=== PATIENT | male | born 1935 | race Caucasian/White ===

== ENCOUNTER 2016-11-18 11:17 | Inpatient (IN) | payer MEDICARE, OTHER ==
[~2016-11-18] VITALS: Ht 182.9 cm; Wt 95.3 kg
[~2016-11-18 11:17] MED LIST: ADVAIR INH; ASPI325T4 PO; AZIT500T4 PO; BUDE10.2 INH; CEFD300C2 PO; CLOP75TA22 PO; DOXY100T PO; HYDR12.58 PO; MULT-738 PO; PANT40TA5 PO; PRED20TA PO; PRED5TAB PO; SIMV40TA3 PO; [UNRECOGNIZED DRUG - OTHER] PO
[2016-11-18] MEDS ORDERED: TIOT18CA INH (11:47)
[2016-11-18] MEDS ORDERED: SODIUM CHLORIDE FLUSH 10ML SYR IVF ONE (12:00)
[2016-11-18 12:19] LABS: HEMOGLOBIN 9.9 g/dL (13.7-18.0)
[2016-11-18 12:29] LABS: ASPARTATE AMINO TRANSFERASE 5 U/L (15-37); BLOOD UREA NITROGEN 26 mg/dL (7-18)
[2016-11-18] MEDS ORDERED: ALBUTEROL/IPRATROPIUM 2.5MG/0.5MG, 3 ML NPPB ONE (12:30)
[2016-11-18] MEDS ORDERED: methylPREDNISolone SOD SUCC 125 MG/2 ML IVPush SCH (12:30)
[2016-11-18] MEDS ORDERED: ALBUTEROL/IPRATROPIUM 2.5MG/0.5MG, 3 ML ONE (12:31)
[2016-11-18 12:34] LABS: IS PT STATUS REG ER OR PRE ER? YES
[2016-11-18] MEDS ORDERED: methylPREDNISolone SOD SUCC 125 MG/2 ML ONE (12:49)
[2016-11-18] MEDS ORDERED: CEFTRIAXONE PMX 1GM/50ML 50 ML ONE (13:19)
[2016-11-18] MEDS: CEFTRIAXONE PMX 1GM/50ML 50 ML IV SCH (13:22)
[2016-11-18] MEDS ORDERED: ACETAMINOPHEN 325 MG TABLET PO PRN (13:30)
[2016-11-18] MEDS: AZITHROMYCIN 500 MG in SODIUM CHLORIDE 0.9% 250 ML IV SCH (13:30)
[2016-11-18] MEDS ORDERED: HYDROcodone/APAP 5/325 TABLET PO PRN (13:30)
[2016-11-18] MEDS ORDERED: MORPHINE SULFATE 4 MG/ML, 1ML IVPush PRN (13:30)
[2016-11-18] MEDS ORDERED: ONDANSETRON 2MG/ML, 2ML IVP PRN (13:30)
[2016-11-18] MEDS ORDERED: TEMAZEPAM 15 MG CAPSULE PO PRN (13:30)
[2016-11-18] MEDS ORDERED: HEPARIN 5,000 UNITS/ML, 1ML ONE (14:20)
[2016-11-18] MEDS: methylPREDNISolone SOD SUCC 125 MG/2 ML IVPush SCH ×2 (14:23→22:04)
[2016-11-18] MEDS: HEPARIN 5,000 UNITS/ML, 1ML SQ SCH ×2 (14:25→23:47)
[2016-11-18] MEDS: ALBUTEROL/IPRATROPIUM 2.5MG/0.5MG, 3 ML NPPB SCH ×2 (15:00→20:30)
[2016-11-18] MEDS: INSULIN REGULAR 100 UNITS/ML, 3ML VIAL SQ-INSULIN SCH ×2 (17:18→23:48)
[2016-11-18 19:00] VITALS: BP 141/76
[2016-11-18 19:18] VITALS: BP 141/76
[2016-11-18] MEDS: ASPIRIN 325 MG TABLET PO SCH (22:05)
[2016-11-18] MEDS: METOPROLOL TARTRATE 25 MG TABLET PO SCH (22:05)
[2016-11-18] MEDS: CLOPIDOGREL 75 MG TABLET PO SCH (22:06)
[2016-11-18] MEDS: SIMVASTATIN 40 MG TABLET PO SCH (22:06)
[2016-11-19 01:28] VITALS: BP 122/70
[2016-11-19] MEDS: methylPREDNISolone SOD SUCC 125 MG/2 ML IVPush SCH ×4 (03:26→21:09)
[2016-11-19 04:56] LABS: BLOOD UREA NITROGEN 32 mg/dL (7-18)
[2016-11-19 05:00] LABS: ASPARTATE AMINO TRANSFERASE 8 U/L (15-37)
[2016-11-19 05:16] LABS: HEMOGLOBIN 9.4 g/dL (13.7-18.0)
[2016-11-19] MEDS: METOPROLOL TARTRATE 25 MG TABLET PO SCH ×2 (05:42→21:09)
[2016-11-19] MEDS: ALBUTEROL/IPRATROPIUM 2.5MG/0.5MG, 3 ML NPPB SCH ×4 (06:50→19:26)
[2016-11-19 07:29] VITALS: BP 132/75
[2016-11-19] MEDS: HEPARIN 5,000 UNITS/ML, 1ML SQ SCH ×2 (08:00→17:04)
[2016-11-19] MEDS: INSULIN REGULAR 100 UNITS/ML, 3ML VIAL SQ-INSULIN SCH ×4 (08:42→21:10)
[2016-11-19] MEDS: PANTOPROZOLE 40MG TABLET PO SCH (08:42)
[2016-11-19 12:59] VITALS: BP 129/64
[2016-11-19] MEDS: CEFTRIAXONE PMX 1GM/50ML 50 ML IV SCH (17:05)
[2016-11-19 19:16] VITALS: BP 121/67
[2016-11-19] MEDS: AZITHROMYCIN 500 MG in SODIUM CHLORIDE 0.9% 250 ML IV SCH (21:08)
[2016-11-19] MEDS: CLOPIDOGREL 75 MG TABLET PO SCH (21:09)
[2016-11-19] MEDS: SIMVASTATIN 40 MG TABLET PO SCH (21:09)
[2016-11-19] MEDS: ASPIRIN 325 MG TABLET PO SCH (21:09)
[2016-11-20] MEDS: HEPARIN 5,000 UNITS/ML, 1ML SQ SCH ×4 (00:43→23:51)
[2016-11-20] MEDS: methylPREDNISolone SOD SUCC 125 MG/2 ML IVPush SCH ×4 (03:45→22:06)
[2016-11-20 03:55] VITALS: BP 126/68
[2016-11-20] MEDS: METOPROLOL TARTRATE 25 MG TABLET PO SCH ×2 (05:55→18:19)
[2016-11-20 06:55] VITALS: BP 141/68
[2016-11-20] MEDS: INSULIN REGULAR 100 UNITS/ML, 3ML VIAL SQ-INSULIN SCH ×4 (07:00→21:00)
[2016-11-20] MEDS: ALBUTEROL/IPRATROPIUM 2.5MG/0.5MG, 3 ML NPPB SCH ×4 (07:03→19:42)
[2016-11-20] MEDS: PANTOPROZOLE 40MG TABLET PO SCH (07:50)
[2016-11-20 13:32] VITALS: BP 115/57
[2016-11-20] MEDS: CEFTRIAXONE PMX 1GM/50ML 50 ML IV SCH (14:35)
[2016-11-20 18:18] VITALS: BP 139/61
[2016-11-20 19:22] VITALS: BP 126/61
[2016-11-20] MEDS: AZITHROMYCIN 500 MG in SODIUM CHLORIDE 0.9% 250 ML IV SCH (22:06)
[2016-11-20] MEDS: ASPIRIN 325 MG TABLET PO SCH (22:06)
[2016-11-20] MEDS: CLOPIDOGREL 75 MG TABLET PO SCH (22:06)
[2016-11-20] MEDS: SIMVASTATIN 40 MG TABLET PO SCH (22:07)
[2016-11-21] MEDS: methylPREDNISolone SOD SUCC 125 MG/2 ML IVPush SCH ×2 (02:59→08:05)
[2016-11-21 03:38] VITALS: BP 127/71
[2016-11-21 04:44] LABS: BLOOD UREA NITROGEN 59 mg/dL (7-18)
[2016-11-21] MEDS: METOPROLOL TARTRATE 25 MG TABLET PO SCH (05:34)
[2016-11-21] MEDS: ALBUTEROL/IPRATROPIUM 2.5MG/0.5MG, 3 ML NPPB SCH ×2 (06:49→10:25)
[2016-11-21] MEDS: INSULIN REGULAR 100 UNITS/ML, 3ML VIAL SQ-INSULIN SCH ×2 (07:00→11:00)
[2016-11-21 07:02] VITALS: BP 125/70
[2016-11-21] MEDS: PANTOPROZOLE 40MG TABLET PO SCH (08:05)
[2016-11-21] MEDS: HEPARIN 5,000 UNITS/ML, 1ML SQ SCH (08:05)
[2016-11-21] MEDS ORDERED: PRED10TA14 PO (09:03)
[2016-11-21] MEDS ORDERED: CEFD300C2 PO (09:03)
[2016-11-21] MEDS ORDERED: AZIT500T4 PO (09:03)
[2016-11-21] MEDS ORDERED: IPRA3AMP INH (09:03)
[2016-11-21] MEDS ORDERED: METO25TA35 PO (09:03)
== END 2016-11-21 12:45 | disposition home health service (06) | DRG 189 ==
LOC: SUATTDRO 12:59 → ED 13:06 → EDIP 13:07 → ED 13:49 → 3NW 18:54 → DCLOUNGE 11-21 12:14
PROVIDERS: ADMIT Internal Medicine; ATTEND Internal Medicine
DX: J96.21 Acute and chronic respiratory failure with hypoxia (principal); J18.9 Pneumonia, unspecified organism; J44.1 Chronic obstructive pulmonary disease with (acute) exacerbation; J44.0 Chronic obstructive pulmonary disease with (acute) lower respiratory infection; I13.0 Hypertensive heart and chronic kidney disease with heart failure and stage 1 through stage 4 chronic kidney disease, or unspecified chronic kidney disease; I50.32 Chronic diastolic (congestive) heart failure; N18.2 Chronic kidney disease, stage 2 (mild); E78.5 Hyperlipidemia, unspecified; I73.9 Peripheral vascular disease, unspecified; Z96.643 Presence of artificial hip joint, bilateral; K21.9 Gastro-esophageal reflux disease without esophagitis; I71.2 Thoracic aortic aneurysm, without rupture; Z86.73 Personal history of transient ischemic attack (TIA), and cerebral infarction without residual deficits; Z99.81 Dependence on supplemental oxygen; Z87.891 Personal history of nicotine dependence; Z79.82 Long term (current) use of aspirin; Z85.048 Personal history of other malignant neoplasm of rectum, rectosigmoid junction, and anus
CPT/HCPCS: 36415; 71010; 80048; 80053; 82962; 83735; 83880; 84100; 84484; 85025; 85730; 87040; 93005; 94640; 96374; J0456; J0696; J1644; J1815; J7620; J2930; J7050

== ENCOUNTER 2016-11-30 06:38 | Inpatient (IN) | payer MEDICARE, OTHER ==
[~2016-11-30] VITALS: Ht 182.9 cm; Wt 100.6 kg
[~2016-11-30 06:38] MED LIST changes: +IPRA3AMP INH; +METO25TA35 PO; +PRED10TA14 PO; +TIOT18CA INH
[2016-11-30] MEDS ORDERED: ALBUTEROL/IPRATROPIUM 2.5MG/0.5MG, 3 ML ONE (06:43)
[2016-11-30] MEDS: ALBUTEROL/IPRATROPIUM 2.5MG/0.5MG, 3 ML NPPB SCH (06:46)
[2016-11-30] MEDS ORDERED: SODIUM CHLORIDE FLUSH 10ML SYR IVF ONE (07:00)
[2016-11-30] MEDS ORDERED: methylPREDNISolone SOD SUCC 125 MG/2 ML IVP ONE (07:00)
[2016-11-30] MEDS ORDERED: methylPREDNISolone SOD SUCC 125 MG/2 ML ONE (07:17)
[2016-11-30 07:34] LABS: HEMOGLOBIN 11.1 g/dL (13.7-18.0)
[2016-11-30 07:47] LABS: BLOOD UREA NITROGEN 37 mg/dL (7-18)
[2016-11-30 07:51] LABS: IS PT STATUS REG ER OR PRE ER? YES
[2016-11-30] MEDS ORDERED: CEFTRIAXONE PMX 1GM/50ML 50 ML IV ONE (08:00)
[2016-11-30] MEDS ORDERED: CEFTRIAXONE PMX 1GM/50ML 50 ML ONE (08:07)
[2016-11-30 08:11] LABS: ANISOCYTOSIS 1+; MICROCYTOSIS 1+; POLYCHROMASIA 1+
[2016-11-30 08:12] LABS: OVALOCYTES 2+; POIKILOCYTOSIS 2+
[2016-11-30 08:13] LABS: LARGE PLATELETS 1+; STOMATOCYTES 1+
[2016-11-30] MEDS ORDERED: ASPIRIN 81 MG TABLET CHEW PO ONE (08:30)
[2016-11-30] MEDS ORDERED: BISACODYL 10 MG SUPP PR PRN (09:00)
[2016-11-30] MEDS ORDERED: DOCUSATE 100 MG CAPSULE PO PRN (09:00)
[2016-11-30] MEDS ORDERED: LABETALOL 20 MG/4 ML IV PRN (09:00)
[2016-11-30] MEDS ORDERED: HYDROcodone/APAP 5/325 TABLET PO PRN (09:00)
[2016-11-30] MEDS ORDERED: ALBUTEROL/IPRATROPIUM 2.5MG/0.5MG, 3 ML NEB PRN (09:00)
[2016-11-30] MEDS ORDERED: ACETAMINOPHEN 325 MG TABLET PO PRN (09:00)
[2016-11-30] MEDS ORDERED: MORPHINE SULFATE 4 MG/ML, 1ML IVPush PRN (09:00)
[2016-11-30] MEDS ORDERED: ONDANSETRON 2MG/ML, 2ML IVP PRN (09:00)
[2016-11-30] MEDS ORDERED: POLYETHYLENE GLYCOL 17 GM PACKET PO PRN (09:00)
[2016-11-30] MEDS ORDERED: VANCOMYCIN PER PHARMACY MC PRN (09:00)
[2016-11-30] MEDS: TEMPLATE NON-FORMULARY MED. (Tiotropium Bromide** (Spiriva**) 18 MCG) INH SCH (09:00)
[2016-11-30 09:58] VITALS: BP 170/81
[2016-11-30] MEDS ORDERED: PHARMACOKINETIC CONSULTATION MC ONE (10:30)
[2016-11-30] MEDS ORDERED: PHARMACOKINETIC MONITORING MC PRN (10:30)
[2016-11-30 10:52] VITALS: BP 161/78
[2016-11-30] MEDS: HEPARIN 5,000 UNITS/ML, 1ML SQ SCH ×2 (11:19→17:00)
[2016-11-30] MEDS: FUROSEMIDE 20 MG/2 ML IV SCH (11:19)
[2016-11-30] MEDS: POTASSIUM CHLORIDE 20 MEQ TAB.ER.PRT PO SCH (11:20)
[2016-11-30] MEDS: FLUTICASONE/VILANTEROL 200-25MCG/INH INH SCH (11:20)
[2016-11-30] MEDS: GUAIFENESIN ER 600 MG TABLET PO SCH ×2 (11:20→22:11)
[2016-11-30] MEDS: methylPREDNISolone SOD SUCC 125 MG/2 ML IVPush SCH ×2 (11:21→17:25)
[2016-11-30] MEDS: PIPERACILLIN/TAZO/PMX 3.375GM 50 ML IV SCH ×3 (11:22→22:15)
[2016-11-30 11:28] LABS: IS PT STATUS REG ER OR PRE ER? NO
[2016-11-30] MEDS: VANCOMYCIN 2,000 MG in SODIUM CHLORIDE 0.9% 500 ML IV SCH (12:24)
[2016-11-30] MEDS: SODIUM CHLORIDE FLUSH 10ML SYR IVF SCH ×2 (12:24→22:11)
[2016-11-30 16:20] VITALS: BP 127/71
[2016-11-30 16:23] VITALS: BP 127/79
[2016-11-30] MEDS: METOPROLOL TARTRATE 25 MG TABLET PO SCH (18:25)
[2016-11-30 18:53] LABS: IS PT STATUS REG ER OR PRE ER? NO
[2016-11-30 18:55] VITALS: BP 133/70
[2016-11-30] MEDS: ASPIRIN 325 MG TABLET PO SCH (22:11)
[2016-11-30] MEDS: CLOPIDOGREL 75 MG TABLET PO SCH (22:12)
[2016-11-30] MEDS: SIMVASTATIN 40 MG TABLET PO SCH (22:12)
[2016-12-01] MEDS: HEPARIN 5,000 UNITS/ML, 1ML SQ SCH ×3 (01:00→17:00)
[2016-12-01 01:29] VITALS: BP 138/71
[2016-12-01] MEDS: methylPREDNISolone SOD SUCC 125 MG/2 ML IVPush SCH ×3 (01:33→17:28)
[2016-12-01] MEDS: PIPERACILLIN/TAZO/PMX 3.375GM 50 ML IV SCH ×3 (05:33→20:40)
[2016-12-01 05:34] LABS: HEMOGLOBIN 9.4 g/dL (13.7-18.0)
[2016-12-01] MEDS: METOPROLOL TARTRATE 25 MG TABLET PO SCH (05:34)
[2016-12-01 05:36] LABS: BLOOD UREA NITROGEN 49 mg/dL (7-18)
[2016-12-01] MEDS: POTASSIUM CHLORIDE 20 MEQ TAB.ER.PRT PO SCH (08:00)
[2016-12-01 08:01] VITALS: BP 115/68
[2016-12-01] MEDS: GUAIFENESIN ER 600 MG TABLET PO SCH ×2 (09:00→20:39)
[2016-12-01] MEDS: FUROSEMIDE 20 MG/2 ML IV SCH (09:00)
[2016-12-01] MEDS: SODIUM CHLORIDE FLUSH 10ML SYR IVF SCH ×2 (09:00→20:40)
[2016-12-01] MEDS: TEMPLATE NON-FORMULARY MED. (Tiotropium Bromide** (Spiriva**) 18 MCG) INH SCH (09:00)
[2016-12-01] MEDS: FLUTICASONE/VILANTEROL 200-25MCG/INH INH SCH (09:00)
[2016-12-01] MEDS: VANCOMYCIN 2,000 MG in SODIUM CHLORIDE 0.9% 500 ML IV SCH (11:59)
[2016-12-01 13:13] VITALS: BP 109/51
[2016-12-01 18:44] VITALS: BP 137/64
[2016-12-01] MEDS: CLOPIDOGREL 75 MG TABLET PO SCH (20:39)
[2016-12-01] MEDS: ASPIRIN 325 MG TABLET PO SCH (20:39)
[2016-12-01] MEDS: SIMVASTATIN 40 MG TABLET PO SCH (20:39)
[2016-12-02 00:52] VITALS: BP 165/76
[2016-12-02] MEDS: HEPARIN 5,000 UNITS/ML, 1ML SQ SCH ×3 (01:42→17:00)
[2016-12-02] MEDS: PIPERACILLIN/TAZO/PMX 3.375GM 50 ML IV SCH ×2 (01:43→08:42)
[2016-12-02] MEDS: methylPREDNISolone SOD SUCC 125 MG/2 ML IVPush SCH ×2 (01:43→08:41)
[2016-12-02 05:25] LABS: HEMOGLOBIN 9.5 g/dL (13.7-18.0)
[2016-12-02 05:42] LABS: BLOOD UREA NITROGEN 55 mg/dL (7-18)
[2016-12-02 08:31] VITALS: BP 147/67
[2016-12-02] MEDS: POTASSIUM CHLORIDE 20 MEQ TAB.ER.PRT PO SCH (08:41)
[2016-12-02] MEDS: GUAIFENESIN ER 600 MG TABLET PO SCH ×2 (08:41→21:41)
[2016-12-02] MEDS: FLUTICASONE/VILANTEROL 200-25MCG/INH INH SCH (08:42)
[2016-12-02] MEDS: FUROSEMIDE 20 MG/2 ML IV SCH (08:42)
[2016-12-02] MEDS: SODIUM CHLORIDE FLUSH 10ML SYR IVF SCH ×2 (09:00→21:41)
[2016-12-02] MEDS: TEMPLATE NON-FORMULARY MED. (Tiotropium Bromide** (Spiriva**) 18 MCG) INH SCH (09:00)
[2016-12-02] MEDS: CEFTRIAXONE PMX 1GM/50ML 50 ML IV SCH (10:48)
[2016-12-02] MEDS: DOXYCYCLINE 100 MG in DEXTROSE 5% 250 ML IV SCH ×2 (11:50→22:24)
[2016-12-02 14:00] VITALS: BP 118/72
[2016-12-02 18:40] VITALS: BP 162/75
[2016-12-02] MEDS: CLOPIDOGREL 75 MG TABLET PO SCH (21:41)
[2016-12-02] MEDS: SIMVASTATIN 40 MG TABLET PO SCH (21:41)
[2016-12-02] MEDS: ASPIRIN 325 MG TABLET PO SCH (21:41)
[2016-12-03] MEDS: HEPARIN 5,000 UNITS/ML, 1ML SQ SCH ×2 (01:00→10:19)
[2016-12-03 01:24] VITALS: BP 156/71
[2016-12-03 05:29] LABS: HEMOGLOBIN 9.6 g/dL (13.7-18.0)
[2016-12-03 05:34] LABS: BLOOD UREA NITROGEN 57 mg/dL (7-18)
[2016-12-03] MEDS ORDERED: FUROSEMIDE 10 MG/ML ORAL SOL PO SCH (09:00)
[2016-12-03] MEDS: GUAIFENESIN ER 600 MG TABLET PO SCH (10:17)
[2016-12-03] MEDS: POTASSIUM CHLORIDE 20 MEQ TAB.ER.PRT PO SCH (10:17)
[2016-12-03] MEDS: FLUTICASONE/VILANTEROL 200-25MCG/INH INH SCH (10:17)
[2016-12-03] MEDS: SODIUM CHLORIDE FLUSH 10ML SYR IVF SCH (10:19)
[2016-12-03] MEDS: TEMPLATE NON-FORMULARY MED. (Tiotropium Bromide** (Spiriva**) 18 MCG) INH SCH (10:19)
[2016-12-03] MEDS: CEFTRIAXONE PMX 1GM/50ML 50 ML IV SCH (10:19)
[2016-12-03] MEDS ORDERED: PRED20TA PO (10:20)
[2016-12-03] MEDS ORDERED: GUAI600T22 PO (10:20)
[2016-12-03] MEDS ORDERED: FURO10SO PO (10:20)
[2016-12-03] MEDS ORDERED: CEFD300C2 PO (10:20)
[2016-12-03] MEDS ORDERED: DOXY100T PO (10:20)
[2016-12-03] MEDS ORDERED: POTA20TA6 PO (10:20)
[2016-12-03 10:34] VITALS: BP 150/61
[2016-12-03] MEDS: DOXYCYCLINE 100 MG in DEXTROSE 5% 250 ML IV SCH (11:45)
== END 2016-12-03 12:15 | DRG 871 ==
LOC: ED 07:31 → EDIP 08:14 → 4WST 09:31
PROVIDERS: ADMIT Internal Medicine; ATTEND Internal Medicine
DX: A41.9 Sepsis, unspecified organism (principal); J96.21 Acute and chronic respiratory failure with hypoxia; I50.33 Acute on chronic diastolic (congestive) heart failure; N17.0 Acute kidney failure with tubular necrosis; J18.9 Pneumonia, unspecified organism; E87.2 Acidosis; J44.1 Chronic obstructive pulmonary disease with (acute) exacerbation; E44.0 Moderate protein-calorie malnutrition; J44.0 Chronic obstructive pulmonary disease with (acute) lower respiratory infection; I13.0 Hypertensive heart and chronic kidney disease with heart failure and stage 1 through stage 4 chronic kidney disease, or unspecified chronic kidney disease; E66.9 Obesity, unspecified; R65.20 Severe sepsis without septic shock; D64.9 Anemia, unspecified; E78.00 Pure hypercholesterolemia, unspecified; E78.5 Hyperlipidemia, unspecified; I73.9 Peripheral vascular disease, unspecified; J45.909 Unspecified asthma, uncomplicated; N18.9 Chronic kidney disease, unspecified; K21.9 Gastro-esophageal reflux disease without esophagitis; S30.1XXA Contusion of abdominal wall, initial encounter; Z66 Do not resuscitate; Z79.82 Long term (current) use of aspirin; Z82.49 Family history of ischemic heart disease and other diseases of the circulatory system; Z85.048 Personal history of other malignant neoplasm of rectum, rectosigmoid junction, and anus; Z86.73 Personal history of transient ischemic attack (TIA), and cerebral infarction without residual deficits; Z91.19 Patient's noncompliance with other medical treatment and regimen; Z87.891 Personal history of nicotine dependence; Z68.30 Body mass index [BMI] 30.0-30.9, adult; X58.XXXA Exposure to other specified factors, initial encounter; Y93.89 Activity, other specified; Y92.89 Other specified places as the place of occurrence of the external cause; Y99.8 Other external cause status
CPT/HCPCS: 36415; 71010; 80048; 82040; 83605; 83880; 84484; 85025; 85610; 87040; 93005; 94640; 96365; 96375; J0696; J1644; J2543; J3370; J7060; J7620; J1940; J2930; J7040; J7512